=== PATIENT | male | born 1940 | race Caucasian/White ===

== ENCOUNTER 2019-01-28 07:42 | Day surgery (SDC) | payer MEDICARE ==
[~2019-01-28] VITALS: Ht 185.4 cm; Wt 104.3 kg
[~2019-01-28 07:42] MED LIST: ALTACE10 MG PO; ASPIRIN LOW DOS81 M1 PO; ATORVASTATIN CA10 MG PO; NITROSTAT0.4 MG SL; TOPROL XL50 MG PO
[2019-01-28] MEDS ORDERED: MULTI VIT PO (07:58)
[2019-01-28] MEDS ORDERED: VITAMIN D1000 UNIT PO (07:59)
[2019-01-28] MEDS ORDERED: ASTRAGALUS PO (08:01)
[2019-01-28 10:58] VITALS: BP 108/51
== END 2019-01-28 11:21 | disposition home or self-care (01) ==
LOC: ENDO 07:42 → ORM 09:40 → ENDO 09:40 → ORM 10:45 → ENDO 11:21
PROVIDERS: ATTEND Internal Medicine Gastroenterology
PROC: 0DBL8ZX Excision of Transverse Colon, Via Natural or Artificial Opening Endoscopic, Diagnostic (ICD-10-PCS; principal; 2019-01-28)
PROC: 3E0H8GC Introduction of Other Therapeutic Substance into Lower GI, Via Natural or Artificial Opening Endoscopic (ICD-10-PCS; 2019-01-28)
DX: K50.10 Crohn's disease of large intestine without complications (principal); K57.30 Diverticulosis of large intestine without perforation or abscess without bleeding; K64.4 Residual hemorrhoidal skin tags; K64.8 Other hemorrhoids; I10 Essential (primary) hypertension; I25.10 Atherosclerotic heart disease of native coronary artery without angina pectoris; K21.9 Gastro-esophageal reflux disease without esophagitis; I48.91 Unspecified atrial fibrillation; Z95.1 Presence of aortocoronary bypass graft; Z79.899 Other long term (current) drug therapy; Z86.010 Personal history of colon polyps

== ENCOUNTER 2020-12-24 19:35 | Inpatient (IN) | payer MEDICARE ==
[~2020-12-24] VITALS: Ht 185.4 cm; Wt 107.0 kg
[~2020-12-24 19:35] MED LIST changes: +ASTRAGALUS PO; +MULTI VIT PO; +VITAMIN D1000 UNIT PO
--- NOTE | 2020-12-24 19:38 | NUR ---
BY WC TO ROOM
[2020-12-24 20:39] LABS: IMMATURE GRANULOCYTES 0.7 % (0.0-5.0); MEAN CORPUSCULAR HGB 30.1 pG CALC (26.0-32.0); MEAN CORPUSCULAR HGB CONC 32.2 g/dL CAL (32.0-36.0); NEUT# 7.89 thou/uL (1.82-7.42); RED BLOOD COUNT 5.65 mill/uL (4.70-6.10); RED CELL DISTRI WIDTH 14.9 % (11.5-15.5)
[2020-12-24 20:40] LABS: HEMATOCRIT 52.8 % (39.0-50.0); MEAN CELL VOLUME 93.5 fL CALC (80.0-100.0)
[2020-12-24 20:52] LABS: URINE BILIRUBIN - DIPSTICK NEGATIVE (NEGATIVE); URINE BLOOD DIPSTICK TRACE-INTACT (NEGATIVE); URINE COLOR YELLOW; URINE GLUCOSE - DIPSTICK NEGATIVE (NEGATIVE); URINE KETONE NEGATIVE (NEGATIVE); URINE LEUK ESTERASE NEGATIVE (NEGATIVE); URINE NITRITE - DIPSTICK NEGATIVE (Negative); URINE PROTEIN - DIPSTICK 30 mg/dL (NEG-TRACE); URINE SPECIFIC GRAVITY 1.025; URINE UROBILINOGEN - DIPSTICK 0.2 E.U./dL (0.2)
[2020-12-24 20:52] LABS: ALBUMIN 3.8 g/dL (3.2-5.0); AMYLASE 100 u/l (30-110); BUN 23 mg/dL (8-23); BUN/CREATININE RATIO 23 (12-20 (CALC)); CARBON DIOXIDE 24 mmol/l (22-30); CHLORIDE 100 mmol/l (95-108); CPK 48 u/l (52-200); GFR > 60 ML/MIN (>=60 (CALC)); GFR FOR AFR.AMER. > 60 ML/MIN (>=60 (CALC)); LIPASE 155 u/l (23-300); MAGNESIUM 1.9 mg/dL (1.6-2.3); POTASSIUM 4.4 mmol/l (3.5-5.1); TOTAL PROTEIN 7.3 g/dL (6.3-8.2)
[2020-12-24 20:54] LABS: URINE RBC 0-2 RBC/hpf (0-5)
[2020-12-24 20:57] LABS: ACT PARTIAL THROMBO TIME 25.2 SECONDS (20.0-32.5); INTERNATIONAL NORMALIZED RATIO 1.3 RATIO (0.7-1.3); PROTHROMBIN TIME 13.8 SECONDS (9.0-12.5)
[2020-12-24 20:58] LABS: ALKALINE PHOSPHATASE 153 u/l (38-126); ANION GAP 13 (6-22 (CALC)); BILIRUBIN, TOTAL 3.4 mg/dL (0.0-1.4); SGOT/AST 127 u/l (19-48); SODIUM 133 mmol/l (137-146)
[2020-12-24] MEDS ORDERED: COREG12.5 MG PO (20:59)
--- NOTE | 2020-12-24 20:59 | NUR ---
Reassessment of patient completed. No distress noted.
[2020-12-24] MEDS ORDERED: ALTACE10 MG PO (21:00)
[2020-12-24 21:01] LABS: D-DIMER 8.91 mg/L (0.19-0.60)
[2020-12-24 21:03] LABS: MYOGLOBIN 88 ng/mL (0 - 121)
--- NOTE | 2020-12-24 21:21 | NUR ---
Reassessment of patient completed. No distress noted.
[2020-12-24 21:29] LABS: TSH, 3RD GENERATION 3.34 uIU/mL (0.47 - 4.68)
--- NOTE | 2020-12-24 22:28 | NUR ---
MELVIN MARKHAM, , WAS CALLED PER PATIENT REQUEST, FOR UPDATE ON PATIENT STATUS.
--- NOTE | 2020-12-24 22:42 | NUR ---
Reassessment of patient completed. No distress noted. PT REPOSITIONED.
--- NOTE | 2020-12-24 23:00 | NUR ---
TELEPHONE REPORT RECEIVED FROM Ronak REGALADO RN IN ED. ICU #6 PREPARED TO RECEIVE PT.
--- NOTE | 2020-12-24 23:02 | NUR ---
Admission Note Report Given to: BHARGAVI MASTERSON Transported by: Wheelchair X Stretcher Transported with: X Nurse Transporter X Patent IV O2 X [employer] Lieutenant Location: X ICU MS2
--- NOTE | 2020-12-24 23:30 | NUR ---
PT ARRIVES TO UNIT [facility]IA [employer] @ 0426, ACCOMPANIED BY Ronak REGALADO RN. PT ADMITTED TO ICU #6.
[2020-12-25] VITALS (14 sets, daily range): BP systolic 107–145; BP diastolic 69–95
--- NOTE | 2020-12-25 05:15 | NUR ---
CLIENT TECHNICAL PROFESSIONAL AT BEDSIDE TO OBTAIN LABS.
[2020-12-25 06:31] LABS: HEMATOCRIT 52.2 % (39.0-50.0); HEMOGLOBIN 16.7 g/dl (14.0-18.0); IMMATURE GRANULOCYTES 0.3 % (0.0-5.0); MEAN CELL VOLUME 94.2 fL CALC (80.0-100.0); MEAN CORPUSCULAR HGB 30.1 pG CALC (26.0-32.0); NEUT# 10.12 thou/uL (1.82-7.42); RED BLOOD COUNT 5.54 mill/uL (4.70-6.10); RED CELL DISTRI WIDTH 15.1 % (11.5-15.5)
[2020-12-25 06:42] LABS: ALBUMIN 3.2 g/dL (3.2-5.0); ALKALINE PHOSPHATASE 174 u/l (38-126); ANION GAP 14 (6-22 (CALC)); BILIRUBIN, TOTAL 3.6 mg/dL (0.0-1.4); BUN 25 mg/dL (8-23); BUN/CREATININE RATIO 31 (12-20 (CALC)); CARBON DIOXIDE 18 mmol/l (22-30); CHLORIDE 104 mmol/l (95-108); CREATININE 0.8 mg/dL (0.7-1.3); GFR > 60 ML/MIN (>=60 (CALC)); GFR FOR AFR.AMER. > 60 ML/MIN (>=60 (CALC)); POTASSIUM 5.2 mmol/l (3.5-5.1); SGOT/AST 571 u/l (19-48); SODIUM 131 mmol/l (137-146); TOTAL PROTEIN 6.4 g/dL (6.3-8.2)
--- NOTE | 2020-12-25 08:24 | NUR ---
PT IS AWAKE, ALERT, ORIENTED X 3. LUNGS CLEAR WITH DECREASED BASES, USING 2 LPM NC. NO SHORTNESS OF BREATH. PT SEEN TO BE ATRIAL FIBRILLATION ON THE MONITOR, RATE CONTROLLED AT 74. CARDIZEM AT 10 MG/HR.
--- NOTE | 2020-12-25 10:14 | NUR ---
PT SEEN BY DR BROWN THIS MORNING, WILL TAPER CARDIZEM DRIP AFTER PO MED PROVIDED. PT TO HAVE ABD U/S AND ECHO TODAY, AWARE OF NPO STATUS FOR U/S. NO ABDOMINAL PAIN WHEN PALPATED. MEDS CHANGED AROUND, WAITING FOR UPDATED EMAR.
--- NOTE | 2020-12-25 14:25 | NUR ---
PT TO U/S AND BACK THIS AFTERNOON, CONTINUES AT REST IN THE BED IN NO ACUTE DISTRESS. RHYTHM REMAINS AFIB WITH RATE OF 80.
--- NOTE | 2020-12-25 17:37 | NUR ---
PT EATING SUPPER AT THIS TIME, DOES NOT HAVE MUCH OF AN APPETITE. ULTRASOUND RESULTS NOT YET BACK IN COMPUTER, UNABLE TO SHARE WITH HIM. NO DISTRESS, NO CHEST PAIN, HR REMAINS AFIB AROUND 100.
--- NOTE | 2020-12-25 19:00 | NUR ---
REPORT RECEIVED FROM Ronak LONGORIA RN, CARE OF PT ASSUMED AT THIS TIME.
--- NOTE | 2020-12-25 20:05 | NUR ---
RETURN CALL PROVIDED TO PT'S DAUGHTER. COMMUNICATION CODE VERIFIED. UPDATES ON PT'S STATUS, ASSESMENT, AND PLAN OF CARE PROVIDED. QUESTIONS ANSWERED. 21 MINUTES SPENT ON PHONE WITH CALLER.
[2020-12-26] VITALS (7 sets, daily range): BP systolic 116–148; BP diastolic 72–100
--- NOTE | 2020-12-26 04:26 | NUR ---
Jone LESLIE BOOK SHELVER IN ROOM TO COLLECT AM LABS.
[2020-12-26 06:05] LABS: HEMATOCRIT 52.6 % (39.0-50.0); MEAN CELL VOLUME 93.9 fL CALC (80.0-100.0); MEAN CORPUSCULAR HGB 30.4 pG CALC (26.0-32.0); MEAN CORPUSCULAR HGB CONC 32.3 g/dL CAL (32.0-36.0); RED BLOOD COUNT 5.6 mill/uL (4.70-6.10); RED CELL DISTRI WIDTH 16.1 % (11.5-15.5)
[2020-12-26 06:13] LABS: ANION GAP 13 (6-22 (CALC)); BUN 25 mg/dL (8-23); BUN/CREATININE RATIO 37 (12-20 (CALC)); CARBON DIOXIDE 17 mmol/l (22-30); CHLORIDE 104 mmol/l (95-108); CREATININE 0.7 mg/dL (0.7-1.3); GFR > 60 ML/MIN (>=60 (CALC)); GFR FOR AFR.AMER. > 60 ML/MIN (>=60 (CALC)); MAGNESIUM 1.9 mg/dL (1.6-2.3); POTASSIUM 4.7 mmol/l (3.5-5.1); SODIUM 130 mmol/l (137-146)
--- NOTE | 2020-12-26 08:04 | NUR ---
PATIENT LAYING IN BED AT THIS TIME. PATIENT DENIES ANY PAIN BUT DOES STATE AT TIMES HE GETS "A LITTLE WINDED" UPON MOVEMENT. PATIENT IS ALERT AND ORIENTED AND VERY PLEASANT AT THIS TIME. LAB RN DONE SEE INTERVENTIONS. PATIENT LUNG SOLOMON ARE CLEAR IN UPPPER AND MIDDLE SOLOMON AND DIMINISHED IN LOWER SOLOMON. SIDERAILS ARE UP CALL LIGHT WITHIN REACH. MONITOR READING A-FIB AT A HR OF 111 AT THIS TIME. PATIENT DOES PRESENT WITH TRACE AMOUNT OF EDEMA IN BILATERAL LEGS WILL CONTINUE TO MONITOR.
[2020-12-26 09:27] LABS: ALBUMIN 3.4 g/dL (3.2-5.0); BILIRUBIN, TOTAL 2.8 mg/dL (0.0-1.4); TOTAL PROTEIN 6.6 g/dL (6.3-8.2)
--- NOTE | 2020-12-26 12:00 | NUR ---
PATIENT SITTING UP IN CHAIR AT THIS TIME BANK MANAGER READING AFIB AND HR 106 SPO2 96% AT THIS TIME. CALL LIGHT WITHIN REACH PATIENT DENEIS ANY NEEDS.
[2020-12-26] MEDS ORDERED: XARELTO20 MG PO (13:06)
[2020-12-26] MEDS ORDERED: TOPROL XL50 MG PO (13:07)
--- NOTE | 2020-12-26 13:47 | NUR ---
Patient participated with PT intervention today. Patient carried out log rolling bed mobility ADLs and sit to stand push off transfers with 1 to 2 attempts to help finish task at hand (required mod to min A x 1) with constant verbal and tactile cuing to help decrease trick movements and fall risks. Patient did B LE seated AAROM exercises doing hip flexion, hip adduction, hip abduction, hamstring curls, knee extension, and ankle pumps for 10 reps x 2 sets with constant verbal and tactile cuing to help improve functional weight bearing ADL capability, tolerance, and stability as patient prepares to be discharged from the hospital.
--- NOTE | 2020-12-26 14:00 | NUR ---
Discharge instructions given. Patient verbalizes understanding of same. Discharged in stable condition via Wheelchair to Home with family. All belongings sent with pt. PATIENT GIVEN ALL D/C INSTRUCTIONS AND VERBALIZED UNDERSTANDING AT THIS TIME. PATIENT DID TAKE ALL PERSONAL BELONGINGS AT THIS TIME.
== END 2020-12-26 14:00 | disposition home or self-care (01) | DRG 177 ==
LOC: ED 19:35 → ICU 22:27
PROVIDERS: Family Medicine; ADMIT Hospitalist; ATTEND Hospitalist
DX: U07.1 COVID-19 (principal); I26.99 Other pulmonary embolism without acute cor pulmonale; I48.91 Unspecified atrial fibrillation; I10 Essential (primary) hypertension; I25.10 Atherosclerotic heart disease of native coronary artery without angina pectoris; R74.01 Elevation of levels of liver transaminase levels; Z95.1 Presence of aortocoronary bypass graft
CPT/HCPCS: J1650; Q9967

== ENCOUNTER 2021-01-02 12:07 | Observation (INO) | payer MEDICARE ==
[~2021-01-02] VITALS: Ht 185.4 cm; Wt 101.0 kg
[~2021-01-02 12:07] MED LIST changes: +COREG12.5 MG PO; +XARELTO20 MG PO
[2021-01-02] MEDS ORDERED: RAMIPRIL2.5 MG PO (12:52)
[2021-01-02 13:00] LABS: HEMATOCRIT 47.8 % (39.0-50.0); HEMOGLOBIN 15.5 g/dl (14.0-18.0); IMMATURE GRANULOCYTES 0.6 % (0.0-5.0); MEAN CELL VOLUME 92.8 fL CALC (80.0-100.0); MEAN CORPUSCULAR HGB 30.1 pG CALC (26.0-32.0); MEAN CORPUSCULAR HGB CONC 32.4 g/dL CAL (32.0-36.0); NEUT# 4.56 thou/uL (1.82-7.42); RED BLOOD COUNT 5.15 mill/uL (4.70-6.10); RED CELL DISTRI WIDTH 14.9 % (11.5-15.5)
[2021-01-02 13:11] LABS: ALBUMIN 3.3 g/dL (3.2-5.0); ALKALINE PHOSPHATASE 119 u/l (38-126); BUN 20 mg/dL (8-23); BUN/CREATININE RATIO 27 (12-20 (CALC)); CHLORIDE 104 mmol/l (95-108); CREATININE 0.7 mg/dL (0.7-1.3); GFR > 60 ML/MIN (>=60 (CALC)); GFR FOR AFR.AMER. > 60 ML/MIN (>=60 (CALC)); POTASSIUM 4.4 mmol/l (3.5-5.1); SODIUM 134 mmol/l (137-146); TOTAL PROTEIN 6.8 g/dL (6.3-8.2)
[2021-01-02 13:12] LABS: ANION GAP 12 (6-22 (CALC)); BILIRUBIN, TOTAL 1.6 mg/dL (0.0-1.4); CARBON DIOXIDE 22 mmol/l (22-30); SGOT/AST 43 u/l (19-48)
[2021-01-02 13:19] LABS: ACT PARTIAL THROMBO TIME 38.4 SECONDS (20.0-32.5)
[2021-01-02 13:23] LABS: PROTHROMBIN TIME 19.9 SECONDS (9.0-12.5)
[2021-01-02 20:00] VITALS: BP 153/89
[2021-01-03] VITALS: BP 128/85
[2021-01-03 04:00] VITALS: BP 117/78
[2021-01-03 05:42] LABS: ALBUMIN 3.4 g/dL (3.2-5.0); ALKALINE PHOSPHATASE 138 u/l (38-126); ANION GAP 14 (6-22 (CALC)); BILIRUBIN, TOTAL 1.8 mg/dL (0.0-1.4); BUN 21 mg/dL (8-23); BUN/CREATININE RATIO 29 (12-20 (CALC)); CARBON DIOXIDE 20 mmol/l (22-30); CHLORIDE 105 mmol/l (95-108); CREATININE 0.7 mg/dL (0.7-1.3); GFR > 60 ML/MIN (>=60 (CALC)); GFR FOR AFR.AMER. > 60 ML/MIN (>=60 (CALC)); MAGNESIUM 1.9 mg/dL (1.6-2.3); POTASSIUM 4.9 mmol/l (3.5-5.1); SGOT/AST 49 u/l (19-48); SODIUM 134 mmol/l (137-146)
[2021-01-03 07:20] VITALS: BP 136/91
[2021-01-03 09:35] LABS: URINE BILIRUBIN - DIPSTICK NEGATIVE (NEGATIVE); URINE BLOOD DIPSTICK TRACE-INTACT (NEGATIVE); URINE COLOR YELLOW; URINE GLUCOSE - DIPSTICK NEGATIVE (NEGATIVE); URINE KETONE NEGATIVE (NEGATIVE); URINE LEUK ESTERASE NEGATIVE (NEGATIVE); URINE PH 5.5 (4.5-8.0); URINE PROTEIN - DIPSTICK NEGATIVE (NEG-TRACE); URINE SPECIFIC GRAVITY 1.015; URINE UROBILINOGEN - DIPSTICK 0.2 E.U./dL (0.2)
[2021-01-03 09:52] LABS: URINE NITRITE - DIPSTICK NEGATIVE (Negative)
[2021-01-03 11:50] VITALS: BP 122/71
[2021-01-03] MEDS ORDERED: XARELTO20 MG PO (11:55)
[2021-01-03] MEDS ORDERED: LASIX 20 MG TAB20 MG PO (11:56)
[2021-01-03] MEDS ORDERED: DIGITEK0.25 M1 PO (11:57)
[2021-01-03 12:04] VITALS: BP 108/67
[2021-01-03 12:38] VITALS: BP 112/65
== END 2021-01-03 14:06 ==
LOC: ED 12:07 → ED-I 16:10 → ED 16:53 → MS2 16:54
PROVIDERS: Physician Assistant Surgical; ADMIT Internal Medicine; ATTEND Internal Medicine
DX: I48.91 Unspecified atrial fibrillation (principal); I10 Essential (primary) hypertension; I25.10 Atherosclerotic heart disease of native coronary artery without angina pectoris; Z79.01 Long term (current) use of anticoagulants; Z95.1 Presence of aortocoronary bypass graft; Z86.711 Personal history of pulmonary embolism; Z86.16 Personal history of COVID-19; Z20.822 Contact with and (suspected) exposure to COVID-19
CPT/HCPCS: G0378; Q9967

== ENCOUNTER 2021-12-26 21:07 | Emergency (ER) | payer MEDICARE ==
[~2021-12-26] VITALS: Ht 185.4 cm; Wt 97.7 kg
[~2021-12-26 21:07] MED LIST changes: +DIGITEK0.25 M1 PO; +DIGOX250 MCG; +LASIX 20 MG TAB20 MG PO; +LASIX 40 MG TAB40 MG PO; +RAMIPRIL2.5 MG PO; +TOPROL XL100 MG PO
[2021-12-26 21:44] LABS: HEMATOCRIT 46.9 % (39.0-50.0); HEMOGLOBIN 15.5 g/dl (14.0-18.0); IMMATURE GRANULOCYTES 0.2 % (0.0-5.0); MEAN CELL VOLUME 93.4 fL CALC (80.0-100.0); MEAN CORPUSCULAR HGB 30.9 pG CALC (26.0-32.0); NEUT# 11.11 thou/uL (1.82-7.42); RED BLOOD COUNT 5.02 mill/uL (4.70-6.10); RED CELL DISTRI WIDTH 13.3 % (11.5-15.5)
[2021-12-26 21:46] VITALS: BP 119/54
[2021-12-26 21:56] LABS: ALKALINE PHOSPHATASE 86 u/l (38-126); ANION GAP 15 (6-22 (CALC)); BILIRUBIN, TOTAL 2.5 mg/dL (0.0-1.4); BUN 17 mg/dL (8-23); BUN/CREATININE RATIO 19 (12-20 (CALC)); CARBON DIOXIDE 26 mmol/l (22-30); CHLORIDE 98 mmol/l (95-108); CREATININE 0.9 mg/dL (0.7-1.3); GFR FOR AFR.AMER. > 60 ML/MIN (>=60 (CALC)); GFR OTHER RACES > 60 ML/MIN (>=60 (CALC)); LIPASE 110 u/l (23-300); POTASSIUM 3.9 mmol/l (3.5-5.1); SGOT/AST 70 u/l (19-48); SODIUM 135 mmol/l (137-146); TOTAL PROTEIN 8.2 g/dL (6.3-8.2)
[2021-12-26 21:57] LABS: ALBUMIN 4.7 g/dL (3.2-5.0)
[2021-12-26 22:01] VITALS: BP 120/69
[2021-12-26 22:47] VITALS: BP 117/64
[2021-12-26 23:01] VITALS: BP 133/68
[2021-12-26 23:31] VITALS: BP 114/57
[2021-12-27 00:09] VITALS: BP 129/70
[2021-12-27 00:14] LABS: URINE BILIRUBIN - DIPSTICK NEGATIVE (NEGATIVE); URINE BLOOD DIPSTICK TRACE-INTACT (NEGATIVE); URINE COLOR YELLOW; URINE GLUCOSE - DIPSTICK NEGATIVE (NEGATIVE); URINE KETONE NEGATIVE (NEGATIVE); URINE LEUK ESTERASE NEGATIVE (NEGATIVE); URINE PROTEIN - DIPSTICK TRACE mg/dL (NEG-TRACE); URINE SPECIFIC GRAVITY 1.025
[2021-12-27 00:18] LABS: URINE NITRITE - DIPSTICK NEGATIVE (Negative)
[2021-12-27 00:31] VITALS: BP 125/60
== END 2021-12-27 00:44 | disposition home or self-care (01) ==
LOC: ED 21:07
PROVIDERS: Emergency Medicine
DX: R41.82 Altered mental status, unspecified (principal); I10 Essential (primary) hypertension; Z95.1 Presence of aortocoronary bypass graft

== ENCOUNTER 2022-01-07 09:37 | Day surgery (SDC) | payer MEDICARE ==
[~2022-01-07] VITALS: Ht 185.4 cm; Wt 94.8 kg
[~2022-01-07 09:37] MED LIST changes: +D 10001000 UNIT PO; +FISH OIL1 CAP PO; +IS-ZC 50 50 MG1 TAB PO; +MULTI VITAMIN MENS PO; +PROBIOTIC ACIDOPHILU PO; +[UNRECOGNIZED DRUG - CODE] PO; +[UNRECOGNIZED DRUG - OTHER] PO
[2022-01-07] MEDS ORDERED: PERCOCET 5/321 COMBO PO (13:07)
[2022-01-07 13:48] VITALS: BP 124/68
[2022-01-15] MEDS ORDERED: TRIAMCINOLONE A0.1 % EX (10:05)
== END 2022-01-07 14:10 | disposition home or self-care (01) ==
LOC: ORM 09:37
PROVIDERS: ATTEND Surgery
PROC: 0JB50ZZ Excision of Left Neck Subcutaneous Tissue and Fascia, Open Approach (ICD-10-PCS; principal; 2022-01-07)
DX: D17.0 Benign lipomatous neoplasm of skin and subcutaneous tissue of head, face and neck (principal); I10 Essential (primary) hypertension; Z95.1 Presence of aortocoronary bypass graft; Z95.810 Presence of automatic (implantable) cardiac defibrillator; Z79.01 Long term (current) use of anticoagulants
CPT/HCPCS: J3490

== ENCOUNTER 2022-05-27 13:20 | Emergency (ER) | payer MEDICARE ==
[~2022-05-27] VITALS: Ht 185.4 cm; Wt 95.6 kg
[2022-05-27] VITALS (7 sets, daily range): BP systolic 117–128; BP diastolic 68–87
[~2022-05-27 13:20] MED LIST changes: +PERCOCET 5/321 COMBO PO; +TRIAMCINOLONE A0.1 % EX
[2022-05-27 14:13] LABS: URINE BILIRUBIN - DIPSTICK NEGATIVE (NEGATIVE); URINE BLOOD DIPSTICK NEGATIVE (NEGATIVE); URINE COLOR YELLOW; URINE GLUCOSE - DIPSTICK NEGATIVE (NEGATIVE); URINE KETONE NEGATIVE (NEGATIVE); URINE LEUK ESTERASE NEGATIVE (NEGATIVE); URINE PH 6.5 (4.5-8.0); URINE PROTEIN - DIPSTICK NEGATIVE (NEG-TRACE); URINE SPECIFIC GRAVITY 1.015; URINE UROBILINOGEN - DIPSTICK 0.2 E.U./dL (0.2)
[2022-05-27 14:17] LABS: URINE NITRITE - DIPSTICK NEGATIVE (Negative)
== END 2022-05-27 16:52 | disposition home or self-care (01) ==
LOC: ED 13:20
PROVIDERS: Nurse Practitioner
PROC: 0HQEXZZ Repair Left Lower Arm Skin, External Approach (ICD-10-PCS; principal; 2022-05-27)
DX: S51.812A Laceration without foreign body of left forearm, initial encounter (principal); M54.50 Low back pain, unspecified; M48.56XA Collapsed vertebra, not elsewhere classified, lumbar region, initial encounter for fracture; I10 Essential (primary) hypertension; W01.0XXA Fall on same level from slipping, tripping and stumbling without subsequent striking against object, initial encounter; Y92.481 Parking lot as the place of occurrence of the external cause; Z79.01 Long term (current) use of anticoagulants; Z95.1 Presence of aortocoronary bypass graft